=== PATIENT | female | born 1995 | race Caucasian/White ===

== ENCOUNTER 2018-01-19 12:31 | Emergency (ER) | payer MEDICAID ==
[2018-01-19 12:38] VITALS: BP 114/61
--- NOTE | 2018-01-19 12:41 | EDPHY ---
H & P Stated Complaint: Jammed toes on L foot last evening Time Seen by Provider: 01/19/18 12:40 - Personal History LMP (Females 10-55): IUD In Place Current Tetanus Diphtheria and Acellular Pertussis (TDAP): Yes - Medical/Surgical History Other PMH: healthy - Social History Smoking Status: Never smoked Constitutional: Initial Vital Signs Temperature (C) 37.1 C 01/19/18 12:36 Heart Rate 68 01/19/18 12:36 Respiratory Rate 16 01/19/18 12:36 Blood Pressure 114/61 01/19/18 12:36 O2 Sat (%) 98 01/19/18 12:36 O2 Delivery Mode Room Air Allergies/Adverse Reactions: No Known Allergies Allergy (Unverified 01/19/18 12:36) Home Medications: Medication Instructions Recorded NK [No Known Home Meds] 01/19/18 Medical Decision Making - Diagnostics Imaging: I viewed and interpreted images myself ED Course/Re-evaluation: CHIEF COMPLAINT: Left toes injury HISTORY OF PRESENT ILLNESS: The patient is a 22 y/o female complaining of pain in her 2nd and 3rd left toes after an injury last night. She says, "my foot got stuck on the carpet and I heard a crack." Her toes were briefly caught underneath her foot. She didn't immediately have pain, but noticed slowly progressing soreness particularly when stepping or with extension of those toes. No other injuries or symptoms. She is normally healthy. REVIEW OF SYSTEMS: A 10 point review of systems was performed and is negative with the exception of the elements mentioned in the history of present illness. PHYSICAL EXAM: HR, BP, O2 Sat, RR. Temp noted General Appearance: Alert, well hydrated, appropriate, and non-toxic appearing. Head: Atraumatic without scalp tenderness or obvious injury Neck: Supple Respiratory: No distress Cardiovascular: Good capillary refill all extremities. Musculoskeletal: Mild tenderness and ecchymosis at the base of the left foot 2nd and 3rd digits. Otherwise normal active ROM of all extremities, atraumatic. Neurological: Alert, appropriate, and interactive. Nonfocal Skin: No rashes, good turgor, no nodules on palpation. Past medical history: Denies Past surgical history: Denies Family history: Noncontributory Social history: Friend at bedside. DIAGNOSTICS/PROCEDURES/CRITICAL CARE TIME: Left toe x-rays: negative for fracture DIFFERENTIAL DIAGNOSIS: The differential diagnosis for the patient's injury included but was not limited to fracture, ligamentous injury, contusion, muscular strain. MEDICAL DECISION MAKING: This is a healthy 22 y/o female who presents with isolated left 2nd and 3rd toe pain secondary to an injury last night. She has mild tenderness and ecchymosis at the base of the digits. Pain is aggravated by extension of the toes. Plan for x-ray to evaluate for fracture. X-rays are negative for fracture. Plan for discharge with diaz tape, post-op shoe, and podiatry follow up if needed. She is comfortable with this plan. Departure - Departure Disposition: Home, Routine, Self-Care Clinical Impression: Toe sprain Qualifiers: Encounter type: initial encounter Qualified Code(s): S93.509A - Unspecified sprain of unspecified toe(s), initial encounter Condition: Good Instructions: Foot Contusion (ED) Additional Instructions: 1. Diaz tape toes for splinting support while pain is present. Wear post-op shoe for comfort and support. 2. Take 600mg ibuprofen every 6-8 hours as needed for pain over the next few days. 3. Follow up with breeder hen service technician for unimproved symptoms over the next week. Referrals: ERYN GRANDE [Other] - As per Instructions Fabien Hernandez DPM [Doctor of Podiatric Medicine] - As per Instructions Report Scribed for: Joaquin Navarro Report Scribed by: Yana Clements Date of Report: 01/19/18 Time of Report: 12:51
== END 2018-01-19 13:29 | disposition home or self-care (01) ==
DX: S93.505A Unspecified sprain of left lesser toe(s), initial encounter (principal); W23.1XXA Caught, crushed, jammed, or pinched between stationary objects, initial encounter